=== PATIENT | female | born 2000 | race Caucasian/White ===

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

== ENCOUNTER 2022-03-01 09:52 | Emergency (ER) | payer MEDICAID ==
[~2022-03-01] VITALS: Ht 162.6 cm; Wt 59.0 kg
[~2022-03-01 09:52] MED LIST changes: +ACET-9234 PO; +BACI-416 TP; -BACI1PAC6 TP; +ONDA-188 PO
--- NOTE | 2022-03-01 10:04 | NUR ---
PT AMBULATED TO BED 8
[2022-03-01 10:05] VITALS: BP 141/80
--- NOTE | 2022-03-01 10:23 | NUR ---
NEW and FLU swabs obtained, walked to lab.
--- NOTE | 2022-03-01 10:28 | NUR ---
Dr. Marquez evaluating patient at bedside.
--- NOTE | 2022-03-01 10:33 | NUR ---
21 y/o female bib self with c/o cough, congestion, subjective fever and headache x 5 days. Per patient had a subjective fever yesterday. Patient states sister is sick at home. Medical History: Denies ALLERGY: CINNAMON
[2022-03-01] MEDS ORDERED: IBUPROFEN 800 MG TAB PO ONE (10:35)
[2022-03-01] MEDS ORDERED: ALBUTEROL 0.083% 2.5 MG/3 ML NEBU INH ONE (10:35)
[2022-03-01] MEDS ORDERED: IBUP-2213 PO (10:35)
[2022-03-01] MEDS ORDERED: MUC600 PO (10:36)
[2022-03-01] MEDS ORDERED: ALBU0.0912 INH (10:36)
[2022-03-01] MEDS ORDERED: INHA1SPA24 MC (10:36)
--- NOTE | 2022-03-01 11:16 | NUR ---
Patient discharged with v/s stable. Written and verbal after care instructions given. Patient alert, oriented and verbalized understanding of instructions. Ambulatory with steady gait. All questions addressed prior to discharge. ID band removed. Patient advised to follow up with PMD. Rx of ALBUTEROL, IBUPROFEN, INHALER ASSIST DEVICE AND GUAIFENESIN given. Opportunity to ask questions provided and answered. WORK NOTE HANDED TO PATIENT.
== END 2022-03-01 11:16 | disposition home or self-care (01) ==
LOC: MED 09:52
DX: J06.9 Acute upper respiratory infection, unspecified (principal); Z20.822 Contact with and (suspected) exposure to COVID-19
CPT/HCPCS: 87426; 87804; 94640; 99283; J7613

== ENCOUNTER 2022-03-30 13:09 | Emergency (ER) | payer MEDICAID ==
[~2022-03-30] VITALS: Ht 160 cm; Wt 58.5 kg
[~2022-03-30 13:09] MED LIST changes: +ALBU0.0912 INH; +INHA1SPA24 MC; +MUC600 PO
[2022-03-30 13:28] VITALS: BP 141/92
--- NOTE | 2022-03-30 13:30 | NUR ---
21/F WALKED IN C/O COUGH AND SUBJECTIVE FEVER, AND OCNGESTION X1WK. PT STATES SHE WAS DX VIRAL URI 03/01/22. PT STATES TAKING MUCINEX AND DECONGESTANT AND MOTRIN WITH NO RELIEF. AAO4, AMBULATORY. VITALS STABLE. PMH:DENIES
[2022-03-30] MEDS ORDERED: SUD30 PO (13:58)
[2022-03-30] MEDS ORDERED: LIDO15SO PO (13:58)
[2022-03-30] MEDS ORDERED: PROM118S5 PO (13:58)
== END 2022-03-30 14:20 | disposition home or self-care (01) ==
LOC: MED 13:09
DX: J06.9 Acute upper respiratory infection, unspecified (principal); Z91.02 Food additives allergy status
CPT/HCPCS: 99283

== ENCOUNTER 2022-06-22 10:44 | Emergency (ER) | payer MEDICAID ==
[~2022-06-22] VITALS: Ht 154.9 cm; Wt 52.2 kg
[~2022-06-22 10:44] MED LIST changes: +LIDO15SO4 PO; +PROM118S5 PO; +SUD30 PO
[2022-06-22 11:02] VITALS: BP 127/80
--- NOTE | 2022-06-22 12:04 | NUR ---
Patient ambulated to bed 11
--- NOTE | 2022-06-22 12:11 | NUR ---
PT C/O ABD PAIN, NAUSEA, VOMITING THIS AM. RASH X 2DYS. SAFETY MAINTAINED.
[2022-06-22] MEDS ORDERED: DIPH25TA53 PO (13:03)
[2022-06-22] MEDS ORDERED: HYD1C TP (13:03)
[2022-06-22] MEDS ORDERED: ONDA-188 SL (13:06)
[2022-06-22 13:14] VITALS: BP 114/65
--- NOTE | 2022-06-22 13:15 | NUR ---
Patient discharged with v/s stable. Written and verbal after care instructions given and explained. Patient alert, oriented and verbalized understanding of instructions. Ambulatory with steady gait. All questions addressed prior to discharge. ID band removed. Patient advised to follow up with PMD. Rx of BENADRYL, HYDROCORTISONE, ZOFRAN given. Patient educated on indication of medication including possible reaction and side effects. Opportunity to ask questions provided and answered.
== END 2022-06-22 13:14 | disposition home or self-care (01) ==
LOC: MED 10:44
DX: R11.10 Vomiting, unspecified (principal); Z20.822 Contact with and (suspected) exposure to COVID-19; R21 Rash and other nonspecific skin eruption; Z79.899 Other long term (current) drug therapy
CPT/HCPCS: 81025; 99283

== ENCOUNTER 2022-08-01 17:19 | Emergency (ER) | payer MEDICAID ==
[~2022-08-01] VITALS: Ht 157.5 cm; Wt 56.7 kg
[~2022-08-01 17:19] MED LIST changes: +DIPH25TA53 PO; +HYD1C TP; +ONDA-188 SL
[2022-08-01 17:32] VITALS: BP 135/91
[2022-08-01 18:30] LABS: BASOPHILS # (AUTO) 0.1 K/uL (0.00-0.22); EOSINOPHILS # (AUTO) 0.1 K/uL (0-0.4); EOSINOPHILS % (AUTO) 1.4 % (0.0-4.0); HEMATOCRIT 42.4 % (36-48); HEMOGLOBIN 14.5 g/dL (12.0-16.0); LYMPHOCYTES # (AUTO) 1.8 K/uL (2.5-16.5); LYMPHOCYTES % (AUTO) 33.5 % (20.5-51.1); MEAN CORPUSCULAR HEMOGLOBIN 30 pg (27-31); MEAN CORPUSCULAR HGB CONC 34 g/dL (33-37); MEAN CORPUSCULAR VOLUME 88.4 fL (80-94); MONOCYTES # (AUTO) 0.4 K/uL (0.8-1.0); MONOCYTES % (AUTO) 7.5 % (1.7-9.3); NEUTROPHILS # (AUTO) 3.1 K/uL (1.8-7.7); NEUTROPHILS % (AUTO) 56.6 % (42.2-75.2); PLATELET COUNT (AUTO) 176 K/uL (140-450); WHITE BLOOD COUNT (AUTO) 5.5 K/uL (4.5-11.0)
[2022-08-01 18:46] LABS: CARBON DIOXIDE 25.4 mmol/L (21-32); CREATININE 0.8 mg/dL (0.6-1.3); POTASSIUM 3.4 mmol/L (3.5-5.1)
--- NOTE | 2022-08-01 19:16 | NUR ---
Patient discharged with v/s stable. verbal after care instructions given and explained. Patient verbalized understanding. Ambulatory with steady gait. Advised to follow up with PMD. LEFT W/O PAPERWORK
== END 2022-08-01 19:16 | disposition home or self-care (01) ==
LOC: MED 17:19
DX: R07.89 Other chest pain (principal); Z79.899 Other long term (current) drug therapy; Z91.018 Allergy to other foods
CPT/HCPCS: 36415; 71045; 80048; 84484; 84703; 85025; 93005; 99285

== ENCOUNTER 2022-11-06 16:36 | Emergency (ER) | payer MEDICAID ==
[~2022-11-06] VITALS: Ht 162.6 cm; Wt 56.8 kg
[~2022-11-06 16:36] MED LIST changes: -BACI-416 TP; +BACI-418 TP
[2022-11-06 17:00] VITALS: BP 126/87; PULSE 99; RESP 20; TEMP 98.3; O2SAT 100
[2022-11-06] MEDS ORDERED: IBUPROFEN 600 MG TAB PO ONE (17:25)
[2022-11-06] MEDS ORDERED: IBUP-2213 PO (18:42)
[2022-11-06 19:05] VITALS: BP 126/87; PULSE 99; RESP 20; TEMP 98.3; O2SAT 100
== END 2022-11-06 19:05 | disposition home or self-care (01) ==
LOC: MED 16:36
DX: G89.29 Other chronic pain (principal); M25.561 Pain in right knee; M25.562 Pain in left knee; R03.0 Elevated blood-pressure reading, without diagnosis of hypertension; Z91.018 Allergy to other foods; Z79.899 Other long term (current) drug therapy
CPT/HCPCS: 73562; 99283

== ENCOUNTER 2022-12-12 21:43 | Emergency (ER) | payer MEDICAID ==
[~2022-12-12] VITALS: Ht 162.6 cm; Wt 56.7 kg
[2022-12-12 21:50] VITALS: BP 130/76; PULSE 68; RESP 16; TEMP 97.7; O2SAT 98
[2022-12-12 22:47] VITALS: BP 127/81; PULSE 60; RESP 14
[2022-12-12 22:48] VITALS: O2SAT 100
== END 2022-12-12 23:39 | disposition home or self-care (01) ==
LOC: MED 21:43
DX: S90.31XA Contusion of right foot, initial encounter (principal); W54.0XXA Bitten by dog, initial encounter; Y93.89 Activity, other specified; Y92.89 Other specified places as the place of occurrence of the external cause; Y99.8 Other external cause status
CPT/HCPCS: 73630; 90471; 90715; 99283